=== PATIENT | male | born 1980 | race Caucasian/White ===

== ENCOUNTER 2018-04-09 03:59 | Emergency (ER) | payer SELFPAY ==
[~2018-04-09] VITALS: Ht 182.9 cm; Wt 122.5 kg
[2018-04-09 04:01] VITALS: BP 159/95
== END 2018-04-09 04:18 | disposition home or self-care (01) ==
LOC: ER 03:59
DX: L72.0 Epidermal cyst (principal); Z60.2 Problems related to living alone
CPT/HCPCS: 99281; A4606; Z7610; Z7502